=== PATIENT | female | born 1970 | race African-American/Black ===

== ENCOUNTER 2019-01-10 10:30 | Emergency (ER) | payer OTHER, MEDICARE, MEDICAID ==
[2019-01-10 10:30] VITALS: BP 162/80
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
[2019-01-10] MEDS: ORPHENADRINE CITRATE 60 MG/2 ML VIAL. IM ONE (11:18)
[2019-01-10] MEDS: KETOROLAC 60 MG/2 ML VIAL. IM ONE (11:18)
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
[2019-01-10] MEDS ORDERED: HYDR-3165 PO (11:38)
[2019-01-10] MEDS: HYDROcodone/APAP 5/325MG 1 TAB TABLET PO ONE (12:00)
== END 2019-01-10 11:55 | disposition home or self-care (01) ==
LOC: ER 10:30
DX: S16.1XXA Strain of muscle, fascia and tendon at neck level, initial encounter (principal); S09.8XXA Other specified injuries of head, initial encounter; G89.29 Other chronic pain; M54.5 Low back pain; F41.9 Anxiety disorder, unspecified; F32.9 Major depressive disorder, single episode, unspecified; V43.62XA Car passenger injured in collision with other type car in traffic accident, initial encounter; Y93.89 Activity, other specified; Y92.488 Other paved roadways as the place of occurrence of the external cause; Y99.8 Other external cause status
CPT/HCPCS: 70450; 72125; 96372; 99284; J1885; J2360

== ENCOUNTER → 2019-02-24 | Outpatient (CLI) | payer OTHER, MEDICARE, MEDICAID ==
[~2019-02-24] MED LIST: HYDR-3165 PO
--- NOTE | 2019-02-24 16:17 | RAD ---
EXAM: AP, lateral and LS spot views of the lumbar spine DATE: 02/24/2019 12:00 AM INDICATION: Back pain COMPARISON: No Prior FINDINGS: There are 5 nonrib-bearing lumbar-type vertebral bodies. Vertebral body heights are preserved. Intervertebral disc heights are preserved. No spondylolisthesis. Straightening of the normal lumbar lordosis. Moderate colonic stool content in bowel gas limits evaluation of the spine and sacrum. IMPRESSION: 1. Negative acute fracture or subluxation. Electronically signed by: Naresh England MD (02/24/2019 4:14 PM) [facility]
== END | disposition home or self-care (01) ==
LOC: PMG 11:46
PROVIDERS: ATTEND Family Medicine
DX: M54.5 Low back pain (principal); K56.41 Fecal impaction
CPT/HCPCS: 72100

== ENCOUNTER 2019-03-15 12:05 | Emergency (ER) | payer MEDICARE, MEDICAID ==
[~2019-03-15] VITALS: Ht 160 cm; Wt 67.6 kg
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
[2019-03-15 13:04] LABS: BASO # 0.1 x10^3/uL (0.0-0.2); BASO % 1 % (0-3); EOS # 0.1 x10^3/uL (0.0-0.7); EOS % 1 % (0-3); HEMATOCRIT 41.6 % (36.0-47.0); HEMOGLOBIN 13.7 g/dL (12.0-15.5); LYMPH # 2.8 x10^3/uL (1.0-4.8); LYMPH % 20 % (24-48); MEAN CORPUSCULAR HEMOGLOBIN 30 pg (25-35); MEAN CORPUSCULAR HGB CONC 33 g/dL (31-37); MEAN CORPUSCULAR VOLUME 91 fL (79-100); MONO # 0.6 x10^3/uL (0.0-1.1); MONO % 4 % (0-9); NEUT # 10.5 x10^3uL (1.8-7.7); NEUT % 74 % (31-73); PLATELET COUNT 179 x10^3/uL (140-400); RED BLOOD COUNT 4.58 x10^6/uL (3.50-5.40); RED CELL DISTRIBUTION WIDTH 16.2 % (11.5-14.5); WHITE BLOOD COUNT 14.1 x10^3/uL (4.0-11.0)
[2019-03-15 13:17] LABS: ALBUMIN 4.2 g/dL (3.4-5.0); CALCIUM 9.9 mg/dL (8.5-10.1); CREATININE 1.1 mg/dL (0.6-1.0); GFR 64.7; POTASSIUM 3.8 mmol/L (3.5-5.1); TOTAL BILIRUBIN 0.3 mg/dL (0.2-1.0); TOTAL PROTEIN 8.3 g/dL (6.4-8.2)
[2019-03-15 13:39] LABS: BACTERIA,URINE 0 /HPF (0-FEW); BILIRUBIN,URINE NEG (NEG); CLARITY,URINE CLEAR; COLOR,URINE YELLOW; GLUCOSE,URINE NEG (NEG); NITRITE,URINE NEG (NEG); RBC,URINE 0 /HPF (0-2); SQUAMOUS EPITHELIAL CELL,UR FEW /LPF; UROBILINOGEN,URINE 0.2 mg/dL (0.2 mg/dL); WBC,URINE 0 /HPF (0-4)
--- NOTE | 2019-03-15 15:03 | ED.ADGEN ---
Past History Past Medical History: Anxiety, Depression Past Surgical History: No Surgical History Alcohol Use: None Drug Use: None Adult General Chief Complaint Chief Complaint Numbness of left upper and left lower extremity. HPI HPI Patient is a 8-year-old -[place] female presents with numbness of left upper and lower extremity. Symptoms were first noticed morning upon waking. Patient states symptoms resolved and then returned later this morning have persisted since this time. Patient states she has had associated left lower extremity weakness. Denies headache, dizziness, change of vision, neck pain, upper extremity weakness, loss of balance. His history of hypertension, diabetes, cardiac arrhythmia, coronary disease, stroke, autoimmune disease, clotting disorder or drug use other than occasional marijuana. Patient taken imm ediately to CT scan per stroke alert after he brought back to room.[] Review of Systems Review of Systems Review symptoms as per history of present illness. All other review symptoms are negative. All other systems were reviewed and found to be within normal limits, except as documented in this note. Allergies Allergies Allergies Coded Allergies Type Severity Reaction Last Updated Verified No Known Drug Allergies 01/10/19 No Physical Exam Physical Exam Constitutional: Well developed, well nourished, no acute distress, non-toxic appearance. [] HENT: Normocephalic, atraumatic, bilateral external ears normal, oropharynx moist, no oral exudates, nose normal. [] Eyes: PERRLA, EOMI, conjunctiva normal, no discharge. [] Neck: Normal range of motion, no tenderness, supple, no stridor. [] Cardiovascular:Heart rate regular rhythm, no murmur [] Lungs & Thorax: Bilateral breath sounds clear to auscultation [] Abdomen: Bowel sounds normal, soft, no tenderness, no masses, no pulsatile masses. [] Skin: Warm, dry, no erythema, no rash. [] Back: No tenderness, no CVA tenderness. [] Extremities: No tenderness, no cyanosis, no clubbing, ROM intact, no edema. [] Neurologic: Alert and oriented X 3, cranial nerves II through XII grossly intact, normal motor function, 3 sensation left upper left lower extremity,, no focal deficits noted. NIH stroke score of 2 on my evaluation [] Psychologic: Affect normal, judgement normal, mood normal. [] Current Patient Data Vital Signs Vital Signs Date Time Temp Pulse Resp B/P (MAP) Pulse Ox O2 Delivery O2 Flow Rate FiO2 03/15/19 13:57 97.8 74 18 98 Room Air Lab Results Laboratory Tests Test 03/15/19 12:47 White Blood Count 14.1 x10^3/uL (4.0-11.0) H Red Blood Count 4.58 x10^6/uL (3.50-5.40) Hemoglobin 13.7 g/dL (12.0-15.5) Hematocrit 41.6 % (36.0-47.0) Mean Corpuscular Volume 91 fL (79-100) Mean Corpuscular Hemoglobin 30 pg (25-35) Mean Corpuscular Hemoglobin Concent 33 g/dL (31-37) Red Cell Distribution Width 16.2 % (11.5-14.5) H Platelet Count 179 x10^3/uL (140-400) Neutrophils (%) (Auto) 74 % (31-73) H Lymphocytes (%) (Auto) 20 % (24-48) L Monocytes (%) (Auto) 4 % (0-9) Eosinophils (%) (Auto) 1 % (0-3) Basophils (%) (Auto) 1 % (0-3) Neutrophils # (Auto) 10.5 x10^3uL (1.8-7.7) H Lymphocytes # (Auto) 2.8 x10^3/uL (1.0-4.8) Monocytes # (Auto) 0.6 x10^3/uL (0.0-1.1) Eosinophils # (Auto) 0.1 x10^3/uL (0.0-0.7) Basophils # (Auto) 0.1 x10^3/uL (0.0-0.2) Prothrombin Time 9.4 SEC (9.4-11.4) Prothrombin Time INR 0.9 (0.9-1.1) Activated Partial Thromboplast Time 26 SEC (23-33) Urine Collection Type Unknown Urine Color Yellow Urine Clarity Clear Urine pH 7.0 Urine Specific [place] 1.010 Urine Protein Neg (NEG-TRACE) Urine Glucose (UA) Neg mg/dL (NEG) Urine Ketones (Stick) Neg mg/dL (NEG) Urine Blood Neg (NEG) Urine Nitrite Neg (NEG) Urine Bilirubin Neg (NEG) Urine Urobilinogen Dipstick 0.2 mg/dL (0.2 mg/dL) Urine Leukocyte Esterase Neg (NEG) Urine RBC 0 /HPF (0-2) Urine WBC 0 /HPF (0-4) Urine Squamous Epithelial Cells Few /LPF Urine Bacteria 0 /HPF (0-FEW) Sodium Level 135 mmol/L (136-145) L Potassium Level 3.8 mmol/L (3.5-5.1) Chloride Level 99 mmol/L (98-107) Carbon Dioxide Level 24 mmol/L (21-32) Anion Gap 12 (6-14) Blood Urea Nitrogen 14 mg/dL (7-20) Creatinine 1.1 mg/dL (0.6-1.0) H Estimated GFR (Cockcroft-Gault) 64.7 BUN/Creatinine Ratio 13 (6-20) Glucose Level 88 mg/dL (70-99) Calcium Level 9.9 mg/dL (8.5-10.1) Total Bilirubin 0.3 mg/dL (0.2-1.0) Aspartate Amino Transferase (AST) 16 U/L (15-37) Alanine Aminotransferase (ALT) 18 U/L (14-59) Alkaline Phosphatase 83 U/L (46-116) Total Protein 8.3 g/dL (6.4-8.2) H Albumin 4.2 g/dL (3.4-5.0) Albumin/Globulin Ratio 1.0 (1.0-1.7) Ethyl Alcohol Level < 10 mg/dL (0-10) EKG EKG [EKG: reviewed. ] Radiology/Procedures Radiology/Procedures [CT head: Nonacute] Course & Med Decision Making Course & Med Decision Making Pertinent Labs and Imaging studies reviewed. (See chart for details) [Exam concerning for CVA. CT head nonacute. Hospital admission/transfer strongly recommended for evaluation of stroke. Patient initially consented but then changed minute abruptly left AGAINST MEDICAL ADVICE. Patient informed that she is at risk of symptoms, permanent disability, and . She is instructed to follow-up with local primary care physician for further management or return to the ED should she change her regarding admission/transfer. Final Impression Final Impression 1. Left-sided numbness 2. CVA] Dragon Disclaimer Dragon Disclaimer This electronic medical record was generated, in whole or in part, using a voice recognition dictation system. MAY MULTANI DO Mar 15, 2019 15:03
[2019-03-15 15:24] VITALS: BP 170/89
--- NOTE | 2019-03-15 15:41 | EKG ---
[address] [address] Test Date: 2019-03-15 Test Time: 12:16:00 Pat Name: NELLY DURAN Department: Room: Gender: F Cotton Factor: TAYLOR : 1970 Requested By: MAY MULTANI Order Number: [id number] Reading MD: Measurements Intervals [place] Rate: 98 P: 5 UT: 120 QRS: 1 QRSD: 88 T: 15 QT: 332 QTc: 426 Interpretive Statements SINUS RHYTHM LEFT ATRIAL ABNORMALITY ABNORMAL ECG RI6.01 No previous ECG available for comparison
== END 2019-03-15 14:50 | disposition left against medical advice (07) ==
LOC: ER 12:05
DX: I63.9 Cerebral infarction, unspecified (principal); R20.0 Anesthesia of skin; R53.1 Weakness; I10 Essential (primary) hypertension; E11.9 Type 2 diabetes mellitus without complications; Z86.73 Personal history of transient ischemic attack (TIA), and cerebral infarction without residual deficits
CPT/HCPCS: 36415; 70450; 80053; 81001; 85025; 85610; 85730; 93005; 99285; G0480

== ENCOUNTER 2020-01-09 01:29 | Emergency (ER) | payer MEDICARE, MEDICAID ==
[~2020-01-09] VITALS: Ht 160 cm; Wt 74.0 kg
[2020-01-09] MEDS ORDERED: IV NORMAL SALINE 1,000ML 1,000 ML IV ONE (02:00)
[2020-01-09] MEDS ORDERED: METOCLOPRAMIDE HCL 10 MG/2 ML VIAL. IVP ONE (02:00)
[2020-01-09] MEDS ORDERED: diphenhydrAMINE 50 MG/ML VIAL IVP ONE (02:00)
[2020-01-09] MEDS ORDERED: KETOROLAC 30 MG/ML VIAL. IVP ONE (02:00)
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
--- NOTE | 2020-01-09 02:42 | EKG ---
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
[2020-01-09 02:48] LABS: BASO # 0.1 x10^3/uL (0.0-0.2); BASO % 1 % (0-3); EOS # 0.3 x10^3/uL (0.0-0.7); EOS % 2 % (0-3); HEMATOCRIT 37.9 % (36.0-47.0); HEMOGLOBIN 12.3 g/dL (12.0-15.5); LYMPH # 4.3 x10^3/uL (1.0-4.8); LYMPH % 31 % (24-48); MEAN CORPUSCULAR HEMOGLOBIN 29 pg (25-35); MEAN CORPUSCULAR HGB CONC 33 g/dL (31-37); MEAN CORPUSCULAR VOLUME 89 fL (79-100); MONO # 0.6 x10^3/uL (0.0-1.1); MONO % 5 % (0-9); NEUT # 8.3 x10^3uL (1.8-7.7); NEUT % 61 % (31-73); PLATELET COUNT 167 x10^3/uL (140-400); RED BLOOD COUNT 4.24 x10^6/uL (3.50-5.40); RED CELL DISTRIBUTION WIDTH 16.5 % (11.5-14.5); WHITE BLOOD COUNT 13.6 x10^3/uL (4.0-11.0)
[2020-01-09 02:54] LABS: CREATININE 1.1 mg/dL (0.6-1.0); GFR 64.4; POTASSIUM 3.8 mmol/L (3.5-5.1)
[2020-01-09 03:00] LABS: ALBUMIN/GLOBULIN RATIO 1.1 (1.0-1.7); TOTAL BILIRUBIN 0.2 mg/dL (0.2-1.0); TOTAL PROTEIN 7.5 g/dL (6.4-8.2)
[2020-01-09 03:23] LABS: BACTERIA,URINE 0 /HPF (0-FEW); BILIRUBIN,URINE NEG (NEG); CLARITY,URINE CLEAR; COLOR,URINE YELLOW; GLUCOSE,URINE NEG (NEG); NITRITE,URINE NEG (NEG); RBC,URINE OCC /HPF (0-2); SQUAMOUS EPITHELIAL CELL,UR MOD /LPF; UROBILINOGEN,URINE 0.2 mg/dL (0.2 mg/dL)
[2020-01-09 03:27] LABS: BARBITURATES NEG (NEG); BENZODIAZEPINES NEG (NEG); CANNABINOIDS NEG (NEG); COCAINE NEG (NEG); METHADONE NEG (NEG); OPIATES NEG (NEG); PHENCYCLIDINE NEG (NEG)
[2020-01-09 03:28] LABS: AMPHETAMINE/METHAMPHETAMINE NEG (NEG)
[2020-01-09] MEDS ORDERED: HEPARIN for IV BOLUS 10,000 UNIT/10 ML VIAL. IV PRN (03:30)
[2020-01-09] MEDS ORDERED: HEPARIN for IV BOLUS 10,000 UNIT/10 ML VIAL. IV ONE (03:30)
[2020-01-09] MEDS ORDERED: HEPARIN 25,000UTS/250ML PREMIX 250 ML IV PRN (03:30)
--- NOTE | 2020-01-09 03:59 | RAD ---
AP chest. HISTORY: Chest pain AP view was taken of the chest. Heart is upper normal in size. There is no pleural effusion. There are mild hazy infiltrates or mild vascular congestion. IMPRESSION: 1. Heart upper normal in size. 2. Mild hazy infiltrates or vascular congestion. Electronically signed by: Matias Canela MD (01/09/2020 3:57 AM) [id number]
[2020-01-09 04:17] VITALS: BP 140/88
== END 2020-01-09 05:10 | disposition short-term general hospital (02) ==
LOC: ER 01:29
DX: I21.4 Non-ST elevation (NSTEMI) myocardial infarction (principal); R51 Headache; I10 Essential (primary) hypertension; F41.9 Anxiety disorder, unspecified; F32.9 Major depressive disorder, single episode, unspecified
CPT/HCPCS: 36415; 71045; 80053; 80307; 81001; 84484; 85025; 85610; 85730; 93005; 96365; 96375; 96376; 99291; J1200; J1644; J1885; J2060; J2765; J7030